=== PATIENT | female | born 1930 | race Caucasian/White ===

== ENCOUNTER 2018-04-01 16:17 | Observation (INO) | payer OTHER ==
[~2018-04-01] VITALS: Ht 157.5 cm; Wt 56.2 kg
[2018-04-01 16:31] VITALS: BP 133/63
[2018-04-01] MEDS ORDERED: PROPRANOLOL 1010 MG PO (16:35)
[2018-04-01] MEDS ORDERED: SYNTHROID75 MCG PO (16:35)
[2018-04-01] MEDS ORDERED: CALCIUM 500 +1 EAC5 PO (16:36)
[2018-04-01] MEDS ORDERED: PROBIOTIC1 EAC1 PO (16:36)
[2018-04-01] MEDS ORDERED: UNICOMPLEX M TA1 TA1 PO (16:36)
[2018-04-01 18:01] LABS: ABSOLUTE LYMPHOCYTES 1.9 thou/uL (0.8-5.3); ABSOLUTE MONOCYTES 0.4 thou/uL (0.0-1.2); ABSOLUTE NEUTROPHILS 6.6 thou/uL (1.6-8.1); BASOPHILS 0.5 %; EOSINOPHILS 0.3 %; HEMATOCRIT 40.4 % (37.0-47.0); HEMOGLOBIN 13.6 gm/dL (12.0-15.0); LYMPHOCYTES 21.4 %; MCH 32.6 pg (26.0-34.0); MCHC 33.6 g/dL (28.0-37.0); MPV 7.4 fl. (7.2-11.1); NUCLEATED RBCS 0 /100WBC; PLATELET COUNT* 204 thou/uL (150-400); POLYS 73.8 %; RBC 4.16 mil/uL (4.20-5.00); WBC 8.9 thou/uL (4.0-11.0)
[2018-04-01 18:15] LABS: CALCIUM 8.7 mg/dL (8.5-10.1); CREATININE 0.9 mg/dL (0.6-1.3); POTASSIUM 3.6 mmol/L (3.5-5.1)
[2018-04-01 18:19] LABS: ALBUMIN 3.2 g/dL (3.4-5.0); TOTAL BILIRUBIN 2.2 mg/dL (<0.1-1.0); TOTAL PROTEIN 6.6 g/dL (6.4-8.2)
[2018-04-01 21:46] VITALS: BP 119/62
[2018-04-02 00:52] VITALS: BP 122/58
[2018-04-02 03:44] VITALS: BP 105/49
[2018-04-02 08:30] VITALS: BP 121/68
[2018-04-02 13:42] VITALS: BP 121/68
[2018-04-02] MEDS ORDERED: NORCO 5-325 TA1 EACH PO (13:48)
[2018-04-02 14:15] VITALS: BP 121/68
--- NOTE | 2018-04-06 11:01 | OP ---
[facility] [address] [place] [address] OPERATIVE REPORT Name: EDYTA RESTREPO Room: [address] Malathi Hutchinson#: [id number] Admission: 04/01/18 Attend Phys: Cassie Gipson MD Discharge: 04/02/18 Date of : 32 Report #: [id number] THIS REPORT FOR: //name// CC: Cassie Leigh DATE OF SERVICE: 04/01/2018 PREOPERATIVE DIAGNOSIS: Acute appendicitis. POSTOPERATIVE DIAGNOSIS: Acute appendicitis. PROCEDURE: Laparoscopic appendectomy. SURGEON: Cassie Gipson MD STEEL FINISHER: Hali Allison DO ESTIMATED BLOOD LOSS: 2 mL. COMPLICATIONS: None. FINDINGS: Acute appendicitis with mobility of cecum noted to go towards the right upper quadrant at times, but without a true volvulus action. SPECIMENS: Appendix. DESCRIPTION OF PROCEDURE: Full informed consent obtained preoperatively including full discussion of risks, benefits, alternatives. Questions answered. The patient was taken to the operating room, prepped and draped in standard sterile fashion. Timeout performed, all in agreement. We began with an 11 mm incision above the umbilicus, used open Hutchins technique to enter safely into the abdomen; 5s placed in left lower quadrant and suprapubic area, inspected the abdomen. Appendix was noted to be in the right mid upper abdomen. It was easily rotated down. Cecum was floppy, but not volvulized. Appendix was grasped, dissected up to its base with Harmonic scalpel. Then, a purple load stapler used to fire across the base to complete transection. Inspected, there was no bleeding from the staple line. Next, placed an EndoCatch bag and removed. Reinspected the abdomen, there was no bleeding. Ports removed. 0 Vicryl on UR-6 used to close the umbilical fascia, 4-0 Monoc[place] [address] OPERATIVE REPORT Name: EDYTA RESTREPO Room: [address]#: [id number] Admission: 04/01/18 Attend Phys: Cassie Gipson MD Discharge: 04/02/18 Date of : 32 Report #: [id number] Dermabond applied. A 10 mL of 0.5% Marcaine injected. Sponge, needle and instrument counts correct at the end of the case. The patient tolerated well. <ELECTRONICALLY SIGNED> By: Cassie Gipson MD 04/06/18 1101 [id number] Gipson MD /nt
--- NOTE | 2018-07-06 12:05 | PATH ---
[address] [address] PATHOLOGY RPT PROCEDURE Name: SAMANTHA RESTREPO Room: [address] M.RXiomy#: [id number] Admission: 04/01/18 Date of : 32 Discharge: 04/02/18 Report #: [id number] Path Case #: [id number] [facility] Accession Number: [id number] . 01 Material submitted: . APPENDIX . 01 Clinical history: . Appendicitis . 02 Diagnosis: Appendix: - Acute appendicitis, periappendicitis, and serositis. (JULIA:brendan; 04/06/2018) QMS/04/06/2018 . 02 Electronically signed: . Brenton Melara MD, Pathologist NPI- [id number] . 01 Gross description: . Received in formalin labeled "Samantha Restrepo, appendix," is an appendix measuring 4.0 cm in length and 0.6 cm in diameter with attached mesoappendix measuring up to 1.7 cm in thickness. The serosal surface is pale smith to dusky montalvo-smith in appearance. The proximal margin serosal surface is inked black. Sectioning of the specimen reveals a pinpoint to dilated lumen partially filled with dark brown, amorphous material. The specimen is submitted representatively in cassette A1, to include the proximal margin, bisected distal tip and additional associate financial representative sections. ([facility]; 04/05/2018) XDC/XDC . 02 Pathologist provided ICD-10: K35.80 . 02 CPT . 666363 Performed at: [address], [place], [place] [id number] MD Rangel Mares MD Phone: [phone] Performed at: 02 [facility] [address], [place], [place] [id number] MD Brenton Melara MD Phone: [phone]
== END 2018-04-02 14:15 | disposition home or self-care (01) ==
LOC: M.ERS 16:17 → M.3W 21:10 → M.TBA-ER 21:10 → M.3W 04-02 00:19
PROVIDERS: Personal Emergency Response Attendant; ADMIT Surgery
DX: K35.80 Unspecified acute appendicitis (principal); R10.31 Right lower quadrant pain; K35.3 Acute appendicitis with localized peritonitis; E03.9 Hypothyroidism, unspecified; Z72.89 Other problems related to lifestyle; Z87.891 Personal history of nicotine dependence

== ENCOUNTER → 2019-09-11 | Outpatient (CLI) | payer OTHER ==
[~2019-09-11] MED LIST: CALCIUM 500 +1 EAC5 PO; NORCO 5-325 TA1 EACH PO; PROBIOTIC1 EAC1 PO; PROPRANOLOL 1010 MG PO; SYNTHROID75 MCG PO; UNICOMPLEX M TA1 TA1 PO
== END ==
LOC: M.RAD 08-30 11:52
DX: M41.84 Other forms of scoliosis, thoracic region (principal); R91.1 Solitary pulmonary nodule; M81.6 Localized osteoporosis [Lequesne]; R07.89 Other chest pain